=== PATIENT | female | born 1965 | race Caucasian/White ===

== ENCOUNTER → 2019-04-16 | Outpatient (CLI) | payer OTHER ==
[~2019-04-16] MED LIST: ADVIL200 M3 PO; LIPITOR10 MG PO; MULTIVITAMINS1 EAC7 PO; NORCO 5-325 TA1 EAC1 PO; PREDNISONE 10 M10 MG PO; PROBIOTIC1 EAC7 PO; TRAMADOL 50 MG50 MG PO; TYLENOL325 M1 PO; WELLBUTRIN XL300 MG PO; XANAX 0.25 MG0.25 MG PO; ZYRTEC10 MG PO
== END ==
LOC: M.RAD 13:28
DX: Z12.31 Encounter for screening mammogram for malignant neoplasm of breast (principal)

== ENCOUNTER → 2019-04-25 | Outpatient (CLI) | payer OTHER ==
--- NOTE | 2019-04-27 16:06 | PATH ---
[address] [address] PATHOLOGY RPT PROCEDURE Name: RAQUEL NG Room: [facility]#: [id number] Admission: 04/25/19 Date of : 69 Discharge: Report #: [id number] Path Case #: [id number] [facility] Accession Number: [id number] . 01 Material submitted: . breast - RIGHT BREAST STEREOTACTIC BIOPSY FOR CALCIFICATIONS. Modifiers: right . 01 Clinical history: . Right breast stereotactic biopsy for calcifications . 02 Diagnosis: Right breast stereotactic biopsy for calcifications: - INFILTRATING DUCTAL ADENOCARCINOMA, INTERMEDIATE GRADE, SPANNING 2 MM, IN ASSOCIATION WITH DUCTAL CARCINOMA IN SITU (DCIS), NUCLEAR GRADE 3, COMEDO AND SOLID TYPES, WITH CALCIFICATIONS, AND SPANNING 6 MM. (SEE COMMENT) . (TANA:mmmariah; 04/27/2019) . . . Specimen type: Stereotactic biopsy Tumor site: Right breast Tumor quantitation: Less than 5% of submitted tissues Histologic type: Ductal adenocarcinoma Histologic grade: Intermediate (II of III) Tubules, nuclei and mitoses: 2, 3, 1 LVSI: Not identified Microcalcifications: Identified in DCIS Markers: Not performed (See below) Block: See below . (TANA:mml; 04/27/2019) QLM 04/27/2019 1054 Local . 02 Comment: A small focus of dispersed infiltrating glands is seen in only one core of A1 and likewise high grade DCIS is seen in multiple cores again only in A1. Properly-controlled immunohistochemical studies performed on A1 to assess the focus of invasive tumor are performed with results as follows, supporting the diagnosis: . P63: Negative Smooth Muscle Myosin heavy chain: Negative . Because of the very limited infiltrating tumor present, which although it spans 2 mm, is in a dispersed pattern, [place] [address] PATHOLOGY RPT PROCEDURE Name: RAQUEL NG Room: [facility]#: [id number] Admission: 04/25/19 Date of : 69 Discharge: Report #: [id number] Path Case #: [id number] thought to be potentially unreliable and therefore will not be performed at this time, pending the potential for more optimal subsequent tissue upon which to obtain it. Grading of the infiltrating tumor should also be noted to be based on very limited tumor present. . Reviewed with Dr. Artem Coburn, who agrees with the diagnosis. Sonia (acting [facility] breast navigator), notified at approximately 1315 on 04/27/2019. Discuss[address] with Dr. Sandra Wiggins on 04/27/2019. . (TANA:mmmariah; 04/27/2019) . 02 Electronically signed: . Jake Arevalo MD, Pathologist NPI- [id number] . 01 Gross description: . Received in formalin labeled "Raquel Ng, right breast stereotactic BX for calcifications," are multiple needle cores of yellow-barrett fibrofatty tissue measuring 1.4 x 2.3 x 0.9 cm in aggregate dimensions. Additionally received in the container is a blue plastic cassette containing multiple needle cores of yellow-barrett fibrofatty tissue measuring 2.7 x 1.6 x 0.8 cm in aggregate dimensions. The tissue in the cassette is submitted in its entirety in cassette A1 and the remaining tissue is submitted in cassettes A2 and A3. The cold ischemic time is 5 minutes. The total formalin fixation time is 11 hours and 45 minutes. (TSD; 04/25/2019) TOB/TOB 04/25/2019 1729 Local . 02 Pathologist provided ICD-10: C50.911, D05.11 . 02 CPT . 575850, X68612, E14521 Specimen Comment: A courtesy copy of this report has been sent to Specimen Comment: [phone], . Specimen Comment: Report sent to / DR NAIDU Performed at: [address], [place], [place] [id number] MD Billy Galvez MD Phone: [phone] Performed at: 02 [facility] [address], [place], [place] [id number] MD Jake Arevalo MD Phone: [phone]
== END ==
LOC: M.ULTRA 07:41
DX: N60.02 Solitary cyst of left breast (principal); N63.10 Unspecified lump in the right breast, unspecified quadrant; R92.1 Mammographic calcification found on diagnostic imaging of breast

== ENCOUNTER → 2019-05-02 | Outpatient (CLI) | payer OTHER | LOC: M.MRI 10:00 | DX: C50.912 Malignant neoplasm of unspecified site of left female breast (principal); C50.911 Malignant neoplasm of unspecified site of right female breast ==

== ENCOUNTER → 2019-05-18 | Day surgery (SDC) | payer OTHER ==
[~2019-05-18] VITALS: Ht 160 cm; Wt 65.8 kg
--- NOTE | 2019-05-22 16:06 | PATH ---
[address] [address] PATHOLOGY RPT PROCEDURE Name: RAQUEL NG Room: [facility].#: [id number] Admission: 05/18/19 Date of : 69 Discharge: Report #: [id number] Path Case #: [id number] [facility] Accession Number: [id number] . 01 Material submitted: . PART A: breast - RIGHT BREAST CANCER LONG LAT,SHORT SUP, DOUBLE DEEP. Modifiers: right PART B: breast - RIGHT BREAST STITCH RODRÍGUEZ NEW MEDIAL MARGIN. Modifiers: right PART C: breast - RIGHT BREAST STITCH RODRÍGUEZ NEW INFERIOR MARGIN. Modifiers: right PART D: breast - RIGHT BREAST STITCH RODRÍGUEZ NEW LATERAL MARGIN. Modifiers: right PART E: breast - RIGHT BREAST STITCH RODRÍGUEZ NEW SUPERIOR MARGIN. Modifiers: right PART F: breast - RIGHT BREAST STITCH RODRÍGUEZ NEW POSTERIOR MARGIN. Modifiers: right PART G: lymph node - RIGHT AXILLARY LYMPH NODE. Modifiers: right . 01 Clinical history: . Right breast cancer. A. Include overlying skin, K=lateral, 4=superior, please run markers. . 02 Diagnosis: A. Right breast cancer: - EXTENSIVE DUCTAL CARCINOMA IN SITU (DCIS), NUCLEAR GRADE III, COMEDO AND SOLID TYPES, WITH CALCIFICATIONS, SPANNING AN ESTIMATED 20 MM, WITH SURGICAL MARGINS FREE OF INVOLVEMENT AND CLOSEST (POSTERIOR) LOCATED 0.2 MM AWAY. - No residual infiltrating tumor. - Benign skin and changes of prior biopsy. - See comment. . B. Right breast new medial margin: - Benign breast, negative for atypia. . C. Right breast new inferior margin: - DCIS, NUCLEAR GRADE III, SOLID TYPE, SPANNING 5 MM, WITH FINAL SURGICAL MARGIN FREE OF INVOLVEMENT AND LOCATED 6 MM AWAY. - See comment. . D. Right breast new lateral margin: - Benign breast tissue with mild chronic inflammation, negative for atypia. . E. Right breast new superior margin: - Benign fat. . F. Right breast new posterior margin: [place] [address] PATHOLOGY RPT PROCEDURE Name: RAQUEL NG Room: [facility]#: [id number] Admission: 05/18/19 Date of : 69 Discharge: Report #: [id number] Path Case #: [id number] - Benign breast tissue with luminal calcifications, negative for atypia. . G. Right axillary lymph node (not hot, not blue): - One benign lymph node (0/1). (TANA:pit; 05/22/2019) QTP 05/22/2019 1222 Local . 02 Comment: Surgical Pathology Cancer Case Summary . Protocol posting date: March 2019 . INVASIVE CARCINOMA OF THE BREAST: Resection . Procedure ___ Excision (less than total mastectomy) . Specimen Laterality ___ Right . + Tumor Site + ___ Not specified . Tumor Size ___ No residual invasive carcinoma . Histologic Type ___ No residual invasive carcinoma . Histologic Grade ___ No residual invasive carcinoma . Ductal Carcinoma In Situ (DCIS) ___ Present + ___ Positive for extensive intraductal component (EIC) . + Size (Extent) of DCIS + Estimated size (extent) of DCIS is at least 25 mm + Number of blocks with DCIS: 8 + Number of blocks examined: 35 . + Architectural Patterns + ___ Comedo + ___ Solid . + Nuclear Grade + ___ Grade III (high) [place] [address] PATHOLOGY RPT PROCEDURE Name: RAQUEL NG Room: [facility]#: [id number] Admission: 05/18/19 Date of : 69 Discharge: Report #: [id number] Path Case #: [id number] + Necrosis + ___ Present, central (expansive "comedo" necrosis) . + Lobular Carcinoma In Situ (LCIS) + ___ No LCIS in specimen . DCIS Margins ___ Uninvolved by DCIS Distance from closest margin ___ Specify 6 mm . Specify closest margin(s): Inferior (see comment) . Regional Lymph Nodes ___ Uninvolved by tumor cells Total Number of Lymph Nodes Examined: 1 Number of [place] Nodes Examined: 0 . Treatment Effect (required only if known) (Note K) ___ No known presurgical therapy . + Lymphovascular Invasion + ___ Not identified . + Dermal Lymphovascular Invasion + ___ Not identified . PATHOLOGIC STAGE CLASSIFICATION (pTNM, AJCC 8th EDITION) . Primary Tumor (pT) . ___ pT1a:Tumor >1 mm but < or = to 5 mm in greatest dimension . Regional Lymph Nodes (pN) ___ pN0:No regional lymph node metastasis identified or ITCs only# . + Ancillary Studies + ___ Not performed see comment. . + Microcalcifications + ___ Present in DCIS + ___ Present in non-neoplastic tissue . + Clinical History + ___ Prior right breast stereotactic biopsy for calcifications showing infiltrating ductal adenocarcinoma, intermediate grade, spanning 2 mm in association with DCIS, nuclear grade III, comedo and solid types with calcifications, spanning 6 mm ([id number]). . [place] [address] PATHOLOGY RPT PROCEDURE Name: RAQUEL NG Room: [facility]#: [id number] Admission: 05/18/19 Date of : 69 Discharge: Report #: [id number] Path Case #: [id number] There is no residual invasive tumor seen in the current specimens and the prior stereotactic biopsy contained minimal invasive tumor spanning 2 mm and at that time breast tumor profile studies were not performed; however, they will now be submitted, the results of which will be the subject of an addendum report. The current staging is based on the presence of invasive tumor seen only in the stereotactic biopsy. Although DCIS did not directly extend to margins in the primary right breast specimen (A), additional DCIS is seen near the "old" inferior margin (C3) where it is 6 mm away from the final true surgical margin. . Discussed with Dr. Surekha Villa at approximately [address] Rain Adams at approximately 1515 on 05/22/2019. (TANA:[facility]; 05/22/2019) . 02 Electronically signed: . Jake Arevalo MD, Pathologist NPI- [id number] . 01 Gross description: . A. Received in formalin labeled "Raquel Ng, right breast cancer suture long lateral short superior double deep K= lateral 4 = superior please run markers" is an oriented breast lumpectomy specimen weighing 13 g and measuring 4.6 cm from medial to lateral, 3.6 cm from anterior to posterior, and 3.2 cm from superior to inferior. On the anterior aspect is an ellipse of stone-white skin measuring 4.5 x 1.3 x 0.3 cm, which has a puckered area or possible biopsy site present measuring 0.5 x 0.1 cm. The specimen is inked as follows: superior-red, inferior-blue, anterior-green, posterior-black, lateral-orange, medial-yellow. The specimen is sectioned from medial to lateral into 12 slices. Within slices 4-9 is a stone-white firm stellate mass admixed with yellow-stone fat necrosis and red-brown biopsy site, measuring entirely 2.5 x 2.4 x 1.7 cm. The mass measures to the margins as follows: 0.4 cm to superior, 0.5 cm to inferior, 0.2 to anterior, 0.3 cm to posterior, 1.8 cm to lateral, and 1.2 cm to medial. A demetris shaped biopsy clip is located within slice 7. The uninvolved breast parenchyma is yellow and lobulated. Two separate unoriented fragments of stone-white skin are present within the container, measuring 3.2 x 1.3 x 0.4 cm and 1.5 x 0.6 x 0.3 cm. The specimen is submitted entirely as follows: A1 slice 1, medial margin, perpendicular sections A2 slice 2 A3 slice 3 A4 slice 4 A5-A6 slice 5 A7-A8 slice 6 A9-A10 slice 7 A11-A12 slice 8 A13-A14 slice 9 A15-A16 slice 10 A17-A18 slice 11 A19-A20 slice 12, lateral margin, [place] [address] PATHOLOGY RPT PROCEDURE Name: RAQUEL NG Room: [facility]#: [id number] Admission: 05/18/19 Date of : 69 Discharge: Report #: [id number] Path Case #: [id number] A21 separate fragments of skin . The specimen is removed from the patient at 1215 and placed in formalin at 1224 on May 18, 2019. The specimen is removed from formalin at 1850 on May 20, 2019. [place] [place] . B. Received in formalin labeled "Raquel Ng, right breast stitch rodríguez new medial margin" is an oriented portion of yellow-stone lobulated fibroadipose tissue measuring 3.2 x 2.5 x 1.2 cm. A suture is on one aspect, indicating the true margin. This aspect is inked black. The opposite aspect is inked blue. The specimen is serially sectioned and submitted in cassettes B1-B3. . C. Received in formalin labeled "Alsin, Raquel, right breast stitch rodríguez new inferior margin" is an oriented portion of yellow-stone lobulated fibroadipose tissue measuring 3.8 x 2.3 x 1.4 cm. A suture is on one aspect, indicating the true margin. This aspect is inked black. The opposite aspect is inked blue. The specimen is serially sectioned and submitted in cassettes C1-C3. . D. Received in formalin labeled "Alsin, Raquel, right breast stitch rodríguez new lateral margin" is an oriented portion of yellow-stone lobulated fibroadipose tissue measuring 4.0 x 3.0 x 0.9 cm. A suture is on one aspect, indicating the true margin. This aspect is inked black. The opposite aspect is inked blue. The specimen is serially sectioned and submitted in cassettes D1-D4. . E. Received in formalin labeled "Alsin, Raquel, right breast stitch rodríguez new superior margin" is an oriented portion of yellow-stone lobulated fibroadipose tissue measuring 2.5 x 1.6 x 1.0 cm. A suture is on one aspect, indicating the true margin. This aspect is inked black. The opposite aspect is inked blue. The specimen is serially sectioned and submitted in cassettes E1-E2. . F. Received in formalin labeled "Alsin, Raquel, right breast stitch rodríguez new posterior margin" is an oriented portion of yellow-stone lobulated fibroadipose tissue measuring 2.6 x 1.5 x 0.8 cm. A suture is on one aspect, indicating the true margin. This aspect is inked black. The opposite aspect is inked blue. The specimen is serially sectioned and submitted in cassettes F1-F2. . G. Received in formalin labeled "Raquel Ng, right axillary lymph node not hot not blue" is a pink-stone possible lymph node measuring 0.8 x 0.5 x 0.3 cm. The specimen is serially sectioned and submitted in cassette G1. [place] [facility] 05/20/2019 0742 Local . 02 Pathologist provided ICD-10: D05.12, N61.0 [place] [address] PATHOLOGY RPT PROCEDURE Name: RAQUEL NG Room: [facility]#: [id number] Admission: 05/18/19 Date of : 69 Discharge: Report #: [id number] Path Case #: [id number] . 02 [facility] . [id number], [id number], [id number], [id number], [id number], [id number], [id number] Specimen Comment: A courtesy copy of this report has been sent to [phone] Specimen Comment: [phone] Specimen Comment: Report sent to / DR ZAYAS Performed at: 01 [facility] [address] [facility] [address], [place], [place] [id number] MD Billy Galvez MD Phone: [phone] Performed at: 02 [facility] Marco Francisco, SMOOTH Dean [id number] MD Jake Arevalo MD Phone: [phone]
--- NOTE | 2019-06-15 08:56 | OP ---
[address] [address] OPERATIVE REPORT Name: MOOSE CALZADA Room: [facility]#: [id number] Admission: 05/18/19 Attend Phys: Surekha Villa MD Discharge: Date of : 69 Report #: [id number] THIS REPORT FOR: //name// CC: Sandra Villa DATE OF SERVICE: 05/18/2019 PREOPERATIVE DIAGNOSES: 1. Malignant neoplasm, upper inner quadrant, right female breast. 2. History of right breast cancer. POSTOPERATIVE DIAGNOSES: 1. Malignant neoplasm, upper inner quadrant, right female breast. 2. History of right breast cancer. 3. Acquired deformity, right breast. PROCEDURES: 1. Injection of blue dye. 2. Right breast seed localized lumpectomy. 3. Right axillary sentinel lymph node biopsy. 4. Right breast reconstruction using 2 x 2 BioSorb and local tissue flap, 2 x 3 cm x 1. SURGEON: Surekha Villa MD OPTIONS TRADER: None. ANESTHESIA: General anesthesia. ESTIMATED BLOOD LOSS: 3 mL. SPECIMENS REMOVED: 1. Right breast cancer. 2. Right breast new medial margin. 3. Right breast new inferior margin. 4. Right breast new lateral margin. 5. Right breast new superior margin. 6. Right breast new posterior margin. 7. Right axillary lymph node not hot, not blue. Other incision 4 cm in length, 2 cm from nipple, 1 o'clock position, periareolar. INDICATIONS: The patient is a 54-year-old female with imaging on 04/16/2019 and 04/25/2019, showing a 1 cm region of indeterminate branching and irregular calcifications in the medial superior right breast. She had had a previous right breast cancer for which she had undergone lumpectomy and radiation in 2006 [place] [address] OPERATIVE REPORT Name: ELSIMOOSE COLE Room: [facility]#: [id number] Admission: 05/18/19 Attend Phys: Surekha Villa MD Discharge: Date of : 69 Report #: [id number] at the age of 41. She did not have any other adjuvant therapy. Upon our initial H and P visit, I discussed that my recommendation and the recommendation for someone who had had a previous breast cancer with a radiation would be mastectomy. She was very hesitant about a mastectomy. She had visited with Dr. Bryan leiva who had also said that mastectomy was her option. She did, however, visit with Dr. Heredia who felt comfortable offering her a repeat radiation. Therefore, given his recommendation, she desired to proceed with breast conservation therapy. We did discuss sentinel node biopsy after a previous sentinel node biopsy could be difficult. She voiced understanding and agreed to proceed. DESCRIPTION OF PROCEDURE: The patient was brought to the operating room. After informed consent had been obtained, she was placed under general anesthesia in the supine position with the right arm extended. A 5 mL of Lymphazurin blue was injected in an intradermal and subdermal location in the upper outer periareolar region of the right breast. Earlier that morning, she had been taken for a seed localization of the previous site of calcifications. This was without difficulty. In the operating room, there was some induration over her biopsy site and this did seem close to the skin in this region; however, I elected to proceed with periareolar incision to see if I could still salvage the skin overlying the site. Therefore, a periareolar skin incision was made with a knife. I also marked out with a marking pen the potential skin incision if I needed to remove the skin overlying the lumpectomy site, but prior to all skin incisions, a combination of 1% lidocaine plain and 0.5% Marcaine with epinephrine was used. Periareolar skin incision was made with a knife. This was deepened into the subcutaneous tissues using the Bovie electrocautery. A path was then created in the superficial mastectomy plane, superiorly and medially, toward the level of the biopsy site. Faxitron LOCalizer was used to facilitate the region of the biopsy site. Once dissection was performed in that area, I did not feel that I could create a plane in between the biopsy site change and the skin that would not cause necrosis of the skin and that would not risk potentially positive margins. Therefore, I made the decision to proceed with revising the lumpectomy to include the overlying skin. Therefore, a new skin incision was made incorporating the skin overlying the lumpectomy site and whatever incision was appropriate, to facilitate the most cosmetic closure in that situation. This skin incision was made with a knife. This was deepened into the subcutaneous tissues using the Bovie electrocautery. The Bovie electrocautery was then used to excise the lump of tissue surrounding the palpable postbiopsy change and the clip as identified by the localizer. Once completely removed, this was labeled for orientation purposes. It was handed off, placed in the mammographic specimen tray and sent for mammographic evaluation. Mammogram did confirm that the calcifications as well as the biopsy clip and the localizer clip were within the specimen. The wound bed was then copiously irrigated with normal saline. It was noted to be adequately hemostatic. Attention was turned to the region of the medial margin. The Bovie electrocautery was used to excise a thin rim of tissue to encompass the new [facility] [address] [place] [address] OPERATIVE REPORT Name: MOOSE CALZADA Room: [facility]#: [id number] Admission: 05/18/19 Attend Phys: Surekha Villa MD Discharge: Date of : 69 Report #: [id number] medial margin. This was then labeled for orientation purposes and handed off for permanent specimen. This was then repeated in the inferior, lateral, superior and posterior margins. The anterior margin was represented by the skin. After the margins had been removed, the wound bed was again irrigated and noted to be hemostatic. Four stay sutures of 3-0 PDS were placed in four quadrants of the lumpectomy bed. The BioZorb sizers were obtained. I elected to place a 2 x 2 BioZorb. Therefore, a 2 x 2 BioZorb was opened onto the field. I changed in to gloves, removed the BioZorb from its box and placed it in the lumpectomy bed. It was secured in place then with the four previously placed stay sutures. I then proceeded with mobilization of tissue from the superior region and the medial inferior region to facilitate closure over the BioZorb. This breast tissue flap of approximately 2 x 3 cm was created in the superficial mastectomy plane to facilitate complete closure. These flaps were then reapproximated over the BioZorb in an interrupted manner with interrupted 3-0 Vicryl sutures to completely cover the BioZorb. The deep dermal layer of the periareolar incision was previously closed with interrupted 3-0 Vicryl sutures. The deep dermal layer of this breast incision was then closed with 3-0 Vicryl in an interrupted manner. I did trim additional skin to facilitate elimination of a dog ear. I then proceeded with closure of the skin with 4-0 Monocryl in a subcuticular manner. Attention was then turned to the axilla. There was no significant high activity noted in the axilla with a [place] probe; however, I made an incision a few centimeters below the hair-bearing area of the right axilla. Of note, she had had a previous right axillary sentinel lymph node biopsy. Skin incision was made with a knife, this was deepened into the subcutaneous tissues using the Bovie electrocautery. A Weitlaner retractor was placed, axillary fascia was divided and the axilla was explored. There were no blue lymphatics that were noted. There was no radiotracer uptake identified. There were multiple clips from previous sentinel node biopsy noted. I then proceeded with again exploration. With my first palpation, I did not feel any firm or enlarged lymph nodes. There was a lymph node immediately adjacent to previous clips that I did excise as a random lymph node biopsy, although it was not a true sentinel node specimen. I again interrogated one final time, did not see any radiotracer uptake in the axilla, nor any blue dye uptake; therefore, this procedure was terminated. The axilla was copiously irrigated with normal saline. Her MRI had shown nothing suspicious in the axilla and I felt that the risks of the axillary dissection outweighed the chance of having any disease within the axilla. Single interrupted suture of 3-0 Vicryl was used to reapproximate the axillary fascia. The deep dermal layers closed with interrupted 3-0 Vicryl sutures and skin was closed with 4-0 Monocryl in a subcuticular manner. All wounds were then dressed with Dermabond dressing. The patient tolerated the procedure well. Sponge, lap and needle counts were [facility] [address] [place] [address] OPERATIVE REPORT Name: MOOSE CALZADA Room: [facility]#: [id number] Admission: 05/18/19 Attend Phys: Surekha Villa MD Discharge: Date of : 69 Report #: [id number] correct x 2 at the end of procedure. She was transferred to recovery in stable condition. <ELECTRONICALLY SIGNED> By: Surekha Villa MD 06/15/19 0856 1351 1504Minscott Villa MD /nt
== END | disposition home or self-care (01) ==
LOC: M.SUR 07:06 → M.NUC 10:15 → EDSTATUS 10:15
DX: D05.11 Intraductal carcinoma in situ of right breast (principal); N61.0 Mastitis without abscess; N64.89 Other specified disorders of breast; R59.0 Localized enlarged lymph nodes; R92.1 Mammographic calcification found on diagnostic imaging of breast; Z98.890 Other specified postprocedural states; Z79.899 Other long term (current) drug therapy; Z98.51 Tubal ligation status; Z85.3 Personal history of malignant neoplasm of breast; Z79.891 Long term (current) use of opiate analgesic

== ENCOUNTER 2019-11-04 23:53 | Observation (INO) | payer OTHER ==
[~2019-11-04] VITALS: Ht 160 cm; Wt 68.0 kg
--- NOTE | ~2019-11-04 | CON ---
[address] [address] CONSULTATION Name: MOOSE CALZADA Room: [address] Xi Burrell#: [id number] Admission: 11/05/19 Attend Phys: Patel Jhaveri MD Discharge: 11/05/19 Date of : 69 Report #: [id number] THIS REPORT FOR: //name// cc: Sandra Wiggins Linda J. DO THIS REPORT FOR: //name// CC: Patel Wiggins DATE OF SERVICE: 11/05/2019 HISTORY OF PRESENT ILLNESS: This is a pleasant 54-year-old female with past medical history significant for breast cancer and celiac disease, who is presenting with abdominal pain, nausea, vomiting, and diarrhea. The patient reports she picked up Curbside, which she assumed was gluten-free pasta. Within a few hours after consuming pasta, the patient began experiencing abdominal pain and diarrhea. The patient reports a similar episode that happened in the past whenever she consumed gluten. She claims she is usually on a completely gluten-free diet. Symptoms have resolved after the hospitalization, the patient is doing relatively well at this time. PAST MEDICAL HISTORY: Breast cancer. PAST SURGICAL HISTORY: Tubal ligation. SOCIAL HISTORY: The patient denies alcohol or recreational drug use. She quit smoking in the past. REVIEW OF SYSTEMS: Comprehensive 10-point review of systems is negative except for what was mentioned in the HPI. PHYSICAL EXAMINATION: VITAL SIGNS: Temperature 36.6, pulse rate 87, respirations 22, blood pressure 92/49, and pulse ox 98%. GENERAL: The patient is alert, awake, oriented x 3. HEENT: Pupils are equal, round, reactive to light and accommodation. Mucous members are moist. There is no congestion. LUNGS: Clear to auscultation bilaterally. CARDIOVASCULAR: Rate and rhythm regular, S1, S2 present. ABDOMEN: Soft. There is no distention, guarding or rigidity. EXTREMITIES: Warm, well perfused without edema. SKIN: Warm and dry. LABORATORY DATA: Hemoglobin 13.9, hematocrit 41.5, platelet count 246, WBC count 14.8. Sodium 143, potassium 3.8, chloride 111, bicarbonate 24, BUN 14, [place] [address] CONSULTATION Name: MOOSE CALZADA [address]#: [id number] Admission: 11/05/19 Attend Phys: Patel Jhaveri MD Discharge: 11/05/19 Date of : 69 Report #: [id number] creatinine 0.8, total bilirubin 0.2, AST 20, ALT 24, alkaline phosphatase 64, and lipase 126. IMAGING: Abdomen and pelvis CT, fluid-filled small bowel and colon consistent with diarrheal process, mild gastroenteritis cannot be excluded. Small hiatal hernia similar to prior exam. Small umbilical hernia, unchanged and no entrapment of bowel loops. ASSESSMENT AND PLAN: Pleasant 54-year-old female presenting with diarrhea following gluten consumption. The patient has a known history of celiac disease. RECOMMENDATIONS: I would recommend the patient resume a gluten-free diet. We can arrange for outpatient GI followup. No further interventions are needed at this time. By: [id number] 1939Cuate Prescott MD /nt
[2019-11-04 23:54] VITALS: BP 113/46
[2019-11-05] MEDS ORDERED: NOLVADEX20 MG PO (00:01)
[2019-11-05] MEDS ORDERED: SINGULAIR 10 MG10 M1 PO (00:02)
[2019-11-05] MEDS ORDERED: PROBIOTIC1 EAC7 PO (00:02)
[2019-11-05 00:30] LABS: HEMATOCRIT 41.5 % (37.0-47.0); HEMOGLOBIN 13.9 gm/dL (12.0-15.0); MCH 32.5 pg (26.0-34.0); MCHC 33.6 g/dL (28.0-37.0); MCV 96.6 fL (80.0-100.0); MPV 8.5 fl. (7.2-11.1); NUCLEATED RBCS 0 /100WBC; PLATELET COUNT* 246 thou/uL (150-400); RBC 4.29 mil/uL (4.20-5.00); RDW-CV 14.3 % (10.5-14.5); WBC 14.8 thou/uL (4.0-11.0)
[2019-11-05 00:37] LABS: CALCIUM 7.7 mg/dL (8.5-10.1); CREATININE 0.8 mg/dL (0.6-1.3); POTASSIUM 3.8 mmol/L (3.5-5.1)
[2019-11-05 00:42] LABS: ALBUMIN 3.2 g/dL (3.4-5.0); MAGNESIUM 1.3 mg/dL (1.8-2.4); TOTAL BILIRUBIN 0.2 mg/dL (<0.1-1.0); TOTAL PROTEIN 7.2 g/dL (6.4-8.2)
[2019-11-05 00:50] LABS: URINE BILIRUBIN NEGATIVE (Negative); URINE BLOOD 1+ (Negative); URINE CLARITY CLEAR; URINE COLOR YELLOW; URINE GLUCOSE-RANDOM NEGATIVE (Negative); URINE KETONES NEGATIVE (Negative); URINE LEUKOCYTES-REFLEX NEGATIVE (Negative); URINE NITRITE-REFLEX NEGATIVE (Negative); URINE PROTEIN 1+ (Negative); URINE SPECIFIC GRAVITY >= 1.030 (1.005-1.030); URINE UROBILINOGEN 0.2 E.U./dl (0.2-1.0)
[2019-11-05 01:08] LABS: BACTERIA-REFLEX >30 Many /HPF (None Seen); SQUAMOUS >10 Many /LPF (0-3); URINE RBC 3-10 Few /HPF (0-2); URINE WBC-REFLEX None Seen /HPF (0-5)
[2019-11-05 01:09] LABS: CASTS None Seen /LPF (None Seen); CRYSTALS None Seen /LPF (None Seen); MUCUS 4-6 Moderate strn/LPF (None Seen)
[2019-11-05 01:56] LABS: ABSOLUTE BASOPHILS 0.1 thou/uL (0.0-0.2); ABSOLUTE LYMPHOCYTES 1.3 thou/uL (0.8-5.3); ABSOLUTE MONOCYTES 0.9 thou/uL (0.0-1.2); ABSOLUTE NEUTROPHILS 12.4 thou/uL (1.6-8.1); ANISOCYTOSIS Occasional; CLUMPED PLTS FEW; PLATELET ESTIMATE ADEQUATE; TOXIC GRANULATION 2+
[2019-11-05 02:59] VITALS: BP 102/59; BP 106/58
[2019-11-05 07:30] VITALS: BP 85/44
--- NOTE | 2019-11-05 10:43 | EKG ---
[place] [address] ELECTROCARDIOGRAM REPORT Name: MOOSE CALZADA Room: [address] M.R.#: [id number] Admission: 11/05/19 Attend Phys: Patel Jhaveri, Discharge: Date of : 69 Date of Service: 11/05/19 0029 Report #: [id number] THIS REPORT FOR: //name// [facility] ED Test Date: 2019-11-05 Test Time: 00:29:26 Pat Name: MOOSE CALZADA Department: Room: [facility] Gender: F Pearl Maker: MR : [id number] Requested By: Raya Lamb Order Number: [id number] MD: Hermilo Ledbetter Measurements Intervals [place] Rate: 77 P: 10 GA: 172 QRS: 1 QRSD: 94 T: 45 QT: 425 QTc: 482 Interpretive Statements Sinus rhythm Baseline wander in lead(s) V3 Electronically Signed On 11-05-2019 10:41:31 CDT by Hermilo Ledbetter [email or web address] <ELECTRONICALLY SIGNED> By: Hermilo Ledbetter MD, [facility] 11/05/19 1041 0029 0029 Hermilo Ledbetter MD, [facility] /EPI
[2019-11-05 12:00] VITALS: BP 92/49
[2019-11-05 13:29] VITALS: BP 92/49
--- NOTE | 2019-11-05 15:42 | NUR ---
NO COMPLAINTS OF PAIN THIS SHIFT. IVF INFUSED ORDERED. MG WAS REPLACED AND LAB VALUE NOW 2.5. PATIENT DIET ADVANCED TO GLUTEN FREE REGULAR FOR LUNCH, NO DIFFICULTY NOTED. GI SAW PATIENT THIS AFTERNOON AND OK TO DISCHARGE. DR. TATE AWARE AND ORDERS READY. VERBALIZES UNDERSTANDING OF PAPERWORK, NO SCRIPTS. PATIENT TAKEN OUT VIA WHEELCHAIR WITH ALL BELONGINGS.
== END 2019-11-05 15:30 | disposition home or self-care (01) ==
LOC: M.ERS 23:53 → M.2W 11-05 01:48 → M.TBA-ER 11-05 01:48 → M.2W 11-05 01:48
PROVIDERS: Personal Emergency Response Attendant; ADMIT Internal Medicine
DX: K52.9 Noninfective gastroenteritis and colitis, unspecified (principal); E86.0 Dehydration; I95.9 Hypotension, unspecified; E87.2 Acidosis; K90.41 Non-celiac gluten sensitivity; R11.2 Nausea with vomiting, unspecified; Z85.3 Personal history of malignant neoplasm of breast

== ENCOUNTER → 2019-11-27 | Outpatient (CLI) | payer OTHER ==
[~2019-11-27] MED LIST changes: +NOLVADEX20 MG PO; +SINGULAIR 10 MG10 M1 PO
== END ==
LOC: M.RAD 15:40
DX: C50.211 Malignant neoplasm of upper-inner quadrant of right female breast (principal); Z17.0 Estrogen receptor positive status [ER+]

== ENCOUNTER → 2020-05-14 | Outpatient (CLI) | payer OTHER | LOC: M.RAD 14:43 | PROVIDERS: ATTEND Family Medicine | DX: Z12.31 Encounter for screening mammogram for malignant neoplasm of breast (principal) ==

== ENCOUNTER → 2020-12-19 | Outpatient (CLI) | payer OTHER | LOC: M.RAD 10:00 | PROVIDERS: ATTEND Nurse Practitioner Family | DX: C50.211 Malignant neoplasm of upper-inner quadrant of right female breast (principal); Z17.0 Estrogen receptor positive status [ER+] ==